=== PATIENT | female | born 1980 | race Caucasian/White ===

== ENCOUNTER 2016-09-25 16:10 | Emergency (ER) | payer OTHER ==
[~2016-09-25 16:10] MED LIST: ALBUTEROL17 G1 IH; ALBUTEROL17 GM INH; ALPRAZOLAM0.25 MG PO; AUGMENTIN PO; AUGMENTIN875 M1 PO; BACTRIM DS TABL1 TA1; BACTRIM DS TABL1 TA1 PO; BACTROBAN22 GM TOP; BAYER CHEWABLE81 MG PO; BROMFED DM COU118 ML PO; CLEOCIN HCL300 M1 PO; COLACE PO; DILAUDID2 MG PO; DOXYCYCLINE HY100 M3 PO; EXCEDRIN MIGRA1 EACH PO; FLEXERIL PO; FLEXERIL10 M1 PO; FLONASE ALLERG9.9 ML; GABAPENTIN300 MG PO; GLUCOVANCE 5/501 TA1 PO; HUMALOG100 U/ML; HUMALOG100 U/ML SUBQ; IBUPROFEN600 MG PO; JANUVIA PO; KEFLEX125 MG/5 M PO; KEFLEX500 M1 PO; KEFLEX500 MG PO; LANTUS100 U/ML SUBQ; LANTUS100 UNITS/ SUBQ; LEVAQUIN PO; LIDOCAINE 5% TOP; LISINOPRIL10 MG PO; LORTAB 10-5001 EACH PO; MACROBID 100 M100 MG PO; MACROBID100 MG PO; MEDROL DOSEPAK4 MG PO; NAPROSYN500 MG PO; NAPROXEN PO; NORVASC PO; NOVOLOG MI100 UNIT/1 SQ; NOVOLOG100 U/M1 SUBQ; NOVOLOG100 U/ML; NOVOLOG100 U/ML SUBQ; PEN-VEE K PO; PEPCID PO; PERCOCET 10/3251 TAB PO; PHENERGAN PO; PHENERGAN25 MG PO; PYRIDIUM PO; RONDEC-DM ORAL30 ML PO; VIBRAMYCIN100 M1 PO; VICODIN PO; VOLTAREN75 MG PO; ZESTRIL10 M1 PO; ZITHROMAX PO; ZITHROMAX1 G/PKT PO; ZOCOR20 MG PO; ZOFRAN ODT4 MG PO; [UNRECOGNIZED DRUG - OTHER] PO; [UNRECOGNIZED DRUG - SUPPLY]
[2016-10-07] MEDS ORDERED: NITRO-DUR 0.1M0.1 MG EXT (18:22)
[2016-10-07] MEDS ORDERED: NEURONTIN (18:22)
[2016-10-07] MEDS ORDERED: IMDUR (18:22)
[2016-10-07] MEDS ORDERED: PLETAL100 MG PO (18:22)
[2016-10-07] MEDS ORDERED: ASPIRIN81 MG PO (18:23)
[2016-10-07] MEDS ORDERED: EFFIENT10 MG PO (18:23)
[2016-10-07] MEDS ORDERED: LIPITOR80 MG PO (18:23)
[2016-10-07] MEDS ORDERED: METOPROLOL SUCC25 MG PO (18:23)
[2016-10-07] MEDS ORDERED: PROTONIX PO (18:24)
== END 2016-09-25 16:16 | disposition home or self-care (01) ==
LOC: SED 16:10
DX: L03.113 Cellulitis of right upper limb (principal); L03.312 Cellulitis of back [any part except buttock and flank]; I10 Essential (primary) hypertension; E11.9 Type 2 diabetes mellitus without complications; Z79.4 Long term (current) use of insulin; Z86.14 Personal history of Methicillin resistant Staphylococcus aureus infection; F17.210 Nicotine dependence, cigarettes, uncomplicated; Z79.899 Other long term (current) drug therapy
CPT/HCPCS: 99282

== ENCOUNTER 2016-10-07 19:25 | Emergency (ER) | payer OTHER ==
--- NOTE | ~2016-10-07 | CR63 ---
STS. [facility] A Service of [facility] RADIOLOGY TEXT RESULTS PATIENT: BREONNA ARNETT LOCATION: SED : 80 UNIT #: [id number] AGE: [address]: GIN SHAH PA-C SEX: F ORDER DR: [id number] [place] [address] [id number] E MR#: [id number] Acc #: [id number] NAME: BREONNA ARNETT : 1980 SEX: F STUDY DATE/TIME: 10/07/2016 20:34 UNIT: SED ROOM: STUDY DESCRIPTION: CR Chest 2 View Attending Physician: Gin Shah Pa-C Ordering Physician: Physician Non-Staff Primary Care Physician: Joao De León M.D. MEDICAL IMAGING REPORT This report is preliminary unless electronic signature is present. EXAM Chest HISTORY Chest pain today. Spider bite. Abscess to left buttock. [place] x2 and history of anxiety. Smoker. FINDINGS Two views of the chest are reviewed. Comparison 08/26/2016. No pleural effusion. Cardiac silhouette is normal. No acute appearing parenchymal infiltrate or acute congestive failure. No pneumothorax. IMPRESSION No active disease. Dictated by... Meagan Monteiro M.D. THIS IS AN ELECTRONICALLY VERIFIED REPORT Meagan Monteiro M.D. at 10/08/2016 8:51 PM Kalia TD: 10/08/2016 10:38 JOB #: [id number] MEDICAL IMAGING REPORT Page 1 of 1
--- NOTE | ~2016-10-07 | EKG ---
PATIENT: BREONNA ARNETT UNIT #: [id number] Ventricular Rate: 80 BPM Atrial Rate: 80 BPM P-R Interval: 152 ms QRS Duration: 92 ms Q-T Interval: 356 ms QTC Calculation(Bezet): 410 ms P Deloit: 5 degrees Calculated R Deloit: 2 degrees Calculated T Deloit: 37 degrees Diagnosis Line: Normal sinus rhythm Diagnosis Line: Minimal voltage criteria for LVH, may be normal Diagnosis Line: variant Diagnosis Line: Poor R wave progression questionable lead position Diagnosis Line: or body habitus Diagnosis Line: Abnormal ECG Diagnosis Line: When compared with ECG of 26-AUG-2016 09:15, Diagnosis Line: No significant change was found Diagnosis Line: Confirmed by TORSTEN FOWLER MD ([id number]) on 10/19/2016 Diagnosis Line: 7:56:18 PM INTERPRETING MD: JANETH WILKINSON
[~2016-10-07 19:25] MED LIST changes: +ASPIRIN81 MG PO; +EFFIENT10 MG PO; +IMDUR; +LIPITOR80 MG PO; +METOPROLOL SUCC25 MG PO; +NEURONTIN; +NITRO-DUR 0.1M0.1 MG EXT; +PLETAL100 MG PO; +PROTONIX PO
[2016-10-07 20:23] LABS: BASOPHIL# 0.1 X10e3 (0-0.3); BASOPHIL% 0.6 % (0-2.5); EOSINOPHIL# 0.5 X10e3 (0-0.7); EOSINOPHIL% 5.2 % (0.0-7.0); HEMATOCRIT 37.4 % (35.0-45.0); HEMOGLOBIN 12.1 gm/dL (12.0-16.0); LYMPHOCYTE# 2.4 X10e3 (1.0-3.5); MEAN CELL VOLUME 81.9 FL (83-96); MEAN CORPUSCULAR HEMOGLOBIN 26.5 PG (28-34); MEAN CORPUSCULAR HGB CONC 32.3 g/dL (30-36); MEAN PLATELET VOLUME 8.4 FL (6.5-11.5); MONOCYTE# 0.5 X10e3 (0-1.0); MONOCYTE% 5.3 % (3.0-12.0); NEUTROPHIL# 6.6 X10e3 (1.5-7.1); NEUTROPHIL% 64.9 % (40-75); PLATELET COUNT 359 X10e3 (140-420); RED BLOOD COUNT 4.57 X10e (3.90-5.30); WHITE BLOOD COUNT 10.1 X10e3 (4.0-10.5)
[2016-10-07 20:24] LABS: DIFF IND NO
[2016-10-07 20:32] LABS: POC - CKMB <1.0 ng/mL (0.0-7.9); POC - MYOGLOBIN 46.9 ng/mL (0.0-169.0); POC - TROPONIN <0.05 ng/mL (<=0.05)
[2016-10-07 20:39] LABS: ALBUMIN SERUM 3.1 g/dL (3.5-5.0); ALKALINE PHOSPHATASE 75 U/L (32-92); ALT (SGPT) 13 U/L (10-40); AST (SGOT) 12 U/L (10-42); BILIRUBIN,TOTAL 0.4 mg/dL (0.2-2.0); BLOOD UREA NITROGEN 15 mg/dL (9-23); BUN/CREATININE RATIO 18.75; CALCIUM SERUM 8.8 mg/dL (8.4-10.2); CARBON DIOXIDE 23 mmol/L (22-31); CHLORIDE 101 mmol/L (100-111); CREATININE SERUM 0.8 mg/dL (0.6-1.4); GLOM FILT RATE Estimated 94.9 mL/min (>60); POTASSIUM 4.3 mmol/L (3.5-5.1); PROTEIN TOTAL SERUM 7.5 g/dL (6.0-8.3)
[2016-10-07 20:42] LABS: BILIRUBIN, DIRECT <0.1 mg/dL (0.0-0.2); BILIRUBIN,INDIRECT 0.3 mg/dL (0.0-0.9); GLUCOSE FASTING 506 mg/dL (70-110); SODIUM 132 mmol/L (135-145)
[2016-10-07 20:46] LABS: URINE SOURCE CLEAN CATCH
[2016-10-07 20:48] LABS: URINE APPEARANCE CLEAR; URINE BILIRUBIN NEG (NEG); URINE BLOOD TRACE-LYSED (NEG); URINE COLOR YELLOW; URINE GLUCOSE 300 MG/DL (NORM); URINE KETONE NEG (NEG); URINE LEUKOCYTE ESTERASE NEG (NEG); URINE NITRATE NEG (NEG); URINE PH 5.5 (5-8); URINE PROTEIN NEG (NEG); URINE SPECIFIC GRAVITY <=1.005 (1.003-1.035); URINE UROBILINOGEN 0.2 MG/DL (NORM)
[2016-10-07 20:50] LABS: MICRO INDICATED? YES
[2016-10-07 20:54] LABS: CULTURE INDICATED? NO; URINE BACTERIA NEG (NEG); URINE SQUAMOUS EPITHELIAL CELL MODERATE /[HPF]; URINE YEAST PRESENT
[2016-10-07 23:46] LABS: POC - CKMB <1.0 ng/mL (0.0-7.9); POC - MYOGLOBIN 30.8 ng/mL (0.0-169.0); POC - TROPONIN <0.05 ng/mL (<=0.05)
== END 2016-10-08 01:30 | disposition home or self-care (01) ==
LOC: SED 19:25
PROVIDERS: Physician Assistant
DX: L02.31 Cutaneous abscess of buttock (principal); E11.65 Type 2 diabetes mellitus with hyperglycemia; I10 Essential (primary) hypertension; F41.9 Anxiety disorder, unspecified; Z98.51 Tubal ligation status; F17.210 Nicotine dependence, cigarettes, uncomplicated; Z91.040 Latex allergy status; Z79.4 Long term (current) use of insulin; Z79.899 Other long term (current) drug therapy
CPT/HCPCS: 36415; 71020; 80048; 80076; 81003; 82553; 82947; 83874; 84484; 85025; 87070; 87077; 87186; 87205; 93005; 96361; 96374; 99284; J2060

== ENCOUNTER 2016-11-15 13:27 | Observation (INO) | payer OTHER ==
--- NOTE | ~2016-11-15 | CT71 ---
[facility] A Service of [facility] RADIOLOGY TEXT RESULTS PATIENT: BREONNA ARNETT LOCATION: [facility] 317-01 : 80 UNIT #: [id number] AGE: [address]: Erin Coyle MD SEX: F ORDER DR: [id number] [facility] [address] [place], [place] [address] [id number] I MR#: [id number] Acc #: [id number] NAME: BREONNA ARNETT. : 1980 SEX: F STUDY DATE/TIME: 11/15/2016 17:32 UNIT: CEDOF ROOM: 74443 STUDY DESCRIPTION: CT Head Wo Contrast Attending Physician: Adri Dudley M.D. Ordering Physician: Gautam Morrison M.D. Primary Care Physician: Joao De León M.D. MEDICAL IMAGING REPORT This report is preliminary unless electronic signature is present EXAM CT of the head without contrast. DATE OF EXAM 11/15/2016 HISTORY 36-year-old female with left-sided head pain beginning today. History of migraines. COMPARISON CT head, 07/06/2016. TECHNIQUE Routine unenhanced axial images performed through the brain. This CT exam was performed with one or more of the following radiation dose reduction techniques: automatic exposure control, adjustment of mA and/or kV according to patient size, and iterative reconstruction. FINDINGS No hemorrhage, acute infarction, mass lesion, or abnormal extraaxial fluid collection. No midline shift or focal mass effect. Ventricular system normal in size and configuration. Remote left frontal periventricular white matter infarct. There is a remote lacunar infarct in the posterior left basal ganglia. No acute bony abnormality. Visualized paranasal sinuses and mastoid air cells are clear. IMPRESSION 1. No acute intracranial abnormality. 2. Remote left frontal periventricular white matter infarct and remote lacunar infarct in the posterior left basal ganglia. [facility] A Service of [facility] RADIOLOGY TEXT RESULTS PATIENT: BREONNA ARNETT LOCATION: [facility] 317-01 : [birth year] UNIT #: [id number] AGE: [address]: Erin Coyle MD SEX: F ORDER DR: Dictated by... Wisam Salazar M.D. THIS IS AN ELECTRONICALLY VERIFIED REPORT Wisam Salazar M.D. at 11/16/2016 10:57 PM BYRON/emma TD: 11/15/2016 21:57 JOB #: [id number] MEDICAL IMAGING REPORT Page 1 of 1 COPY
--- NOTE | ~2016-11-15 | HP ---
Unit #: [id number] #: [id number] Patient: BREONNA ARNETT [id number] [facility]. [place], [place] [address] [id number] I MR#: [id number] NAME: BREONNA ARNETT ROOM: 79910 Age: 36 Sex: F Admission Date: 11/15/2016 : 1980 Attending Physician: Adri Dudley M.D. Primary Care Physician: Joao De León M.D. HISTORY AND PHYSICAL CHIEF COMPLAINT Sharp headache left side. HISTORY OF PRESENT ILLNESS The patient is a 36-year-old female with past medical history of migraine headaches, diabetes, hypertension, hyperlipidemia, coronary artery disease, anxiety, tobacco abuse, morbid obesity, who presented to the emergency department for evaluation of the above. The patient states that she was in her usual state of health until the day of admission when she was at work and had a headache. She states that she was "on break" around noon and was sitting down. She turned her body and experienced the sudden onset of a sharp pain in the left mormon region of her head. She had associated nausea. She then walked back into work and was noted by coworkers to look pale. She states that she did feel somewhat lightheaded. She then was brought to the emergency department for further evaluation. While in the emergency department, she developed numbness. She had difficulty recalling if it was her left hand or her right hand. Per ER documentation it was right hand. From her discussion with me, she said she thought it was maybe left hand. That has since resolved. She now has a headache similar to migraine headaches in the past. In the emergency department, initial pulse 96 and blood pressure 132/88. CT of the head was done and showed nothing acute. She is being admitted to [facility] for evaluation and further treatment. She received 1 liter of normal saline as well as 4 mg of Zofran and 400 mg of Motrin in the emergency department. PAST MEDICAL HISTORY 1. Admission to [facility] within the past year for myocardial infarction. She underwent cardiac stent placement (there are no records). 2. Admission to [facility] 07/10 through 07/13/2016 for atypical chest pain. She underwent stress test that was negative. 3. Coronary artery disease, status post cardiac stent placement. Previously followed by Dr. Gomez. 4. Hypertension. 5. Hyperlipidemia. 6. Diabetes. 7. Anxiety. 8. Migraine headaches. Unit #: [id number] #: [id number] Patient: BREONNA ARNETT PAST SURGICAL HISTORY 1. Pilonidal cyst surgery. 2. Tubal ligation. 3. Cardiac stents. ALLERGIES Latex. HOME MEDICATIONS 1. Lisinopril 40 mg daily. 2. Ventolin one to two puffs q.4 h. p.r.n. 3. Nitroglycerin, unknown dose and frequency. 4. Pletal 100 mg daily. 5. Metoprolol 25 mg daily. 6. Lipitor 80 mg daily. 7. Aspirin 81 mg daily. 8. Protonix 40 mg daily. 9. Imdur 30 mg daily. 10. Effient 10 mg daily. 11. Lantus 55 units subcu daily. SOCIAL HISTORY The patient lives with her . She smokes intermittently. She reports occasional alcohol use. She works at [employer]. FAMILY HISTORY Notable for her father having coronary artery disease and diabetes. REVIEW OF SYSTEMS A complete review of systems is negative except as indicated in the HPI. The patient states that her blood sugars are typically in the 200 to 300 range. PHYSICAL EXAMINATION VITAL SIGNS: Temperature 98.3, pulse 96, respirations 16, blood pressure 132/88, oxygen saturation 99% on room air. GENERAL: The patient is a female who is awake and alert in no acute distress. HEENT: Head is atraumatic. Mucous membranes are moist. NECK: Supple. Trachea is midline. LUNGS: Clear to auscultation bilaterally with no increased work of breathing. HEART: Regular rate and rhythm. ABDOMEN: Soft, nontender, obese. Bowel sounds present in all four quadrants. EXTREMITIES: Nontender with no pedal edema. NEUROLOGIC: Patient is awake and alert. She follows commands. There is no facial asymmetry. No focal deficits. PSYCHIATRIC: Mood and affect are normal. Patient is cooperative. SKIN OF EXAMINED AREAS: Warm and dry. DIAGNOSTIC STUDIES LABORATORY: Complete blood count notable for white blood cell count of 11.7, hemoglobin 11.3. INR 0.9. Comprehensive metabolic panel notable for a sodium of 131 that corrects when glucose of 268 is accounted for. Albumin 3.3. Troponin less than 0.05. IMAGING: CT of the head showed nothing acute. Unit #: [id number] #: [id number] Patient: BREONNA ARNETT CARDIOVASCULAR: EKG shows normal sinus rhythm with a rate of 84 beats per minute. ASSESSMENT The patient is a 36-year-old female with: 1. Headache with history of migraines. Current headache is similar to migraine headaches in the past. 2. Hand numbness. It is unclear if it was the left hand or the right hand; however, the patient states this has been happening intermittently. The numbness has resolved. 3. Uncontrolled diabetes. 4. Hypertension. 5. Hyperlipidemia. 6. Coronary artery disease, status post stent placement. 7. Anxiety. 8. Tobacco abuse. 9. Morbid obesity with a BMI of 42. PLAN 1. Admit for observation to intermediate level. 2. Healthy-heart consistent carb diet. 3. Aspirin 325 mg p.o. times 1 if not already given. 4. Neuro checks. 5. MRI of the brain without contrast for further evaluation of headache and hand numbness. 6. Consult neurology regarding headache and possible TIA. 7. Serial cardiac enzymes. 8. Low-dose sliding scale insulin with Accu-Cheks. 9. SCDs. 10. Repeat labs in the morning. 11. Additional workup and consultants based on above. Dictated by Ad Antoine/samuel TD: 11/15/2016 20:41 JOB #: [id number] HISTORY AND PHYSICAL Page 1 of 1 X Adri Dudley MD X HISTORY AND PHYSICAL
--- NOTE | ~2016-11-15 | EKG ---
PATIENT: BREONNA ARNETT UNIT #: [id number] Ventricular Rate: 84 BPM Atrial Rate: 84 BPM P-R Interval: 142 ms QRS Duration: 88 ms Q-T Interval: 372 ms QTC Calculation(Bezet): 439 ms P Boyden: 63 degrees Calculated R Boyden: 13 degrees Calculated T Boyden: 47 degrees Diagnosis Line: Normal sinus rhythm Diagnosis Line: Normal ECG Baseline wander Diagnosis Line: When compared with ECG of 07-OCT-2016 19:25, Diagnosis Line: No significant change was found Diagnosis Line: Confirmed by TORSTEN FOWLER MD ([id number]) on 11/16/2016 Diagnosis Line: 10:05:36 AM INTERPRETING MD: JANETH WILKINSON
--- NOTE | ~2016-11-15 | CO ---
Unit #: [id number] #: [id number] Patient: BREONNA ARNETT [id number] [facility] [address] [facility]. [place], [place] [address] [id number] I MR#: [id number] NAME: BREONNA ARNETT ROOM: 317 Age: 36 Sex: F Admission Date: 11/15/2016 : 1980 Attending Physician: Erin Coyle M.D. Primary Care Physician: Joao De León M.D. Requesting Physician: Adri Dudley M.D. Consultation Date: 11/16/2016 CONSULTATION REPORT REASON FOR CONSULT Headache, questionable TIA. PATIENT IDENTIFICATION This is a 36-year-old, right-handed, female evaluated in room 317 at [facility]. SOURCE OF INFORMATION Obtained from the patient, as well as the medical record. HISTORY OF PRESENT ILLNESS This is a 36-year-old, right-handed, female, with a past medical history of migraine headaches, diabetes, hypertension, hyperlipidemia, coronary artery disease, anxiety and tobacco use, as well as morbid obesity, who presents to [facility] for evaluation of headache. The patient states that she was in her usual state of health until the day of admission when she was at work and reports that she had a sudden sharp left-sided headache when she was on break. She reports that her face went pale, and she had associated nausea, was noted by coworkers to be pale, and thus, she was brought to the ER for further evaluation. Apparently, while she was in the waiting room, she developed a little bit of numbness in her hand. Initially she had reported one hand and then reported the other hand. She reports that it lasted briefly, did not travel up her arm or down her leg or on her face. She states that she has had similar symptoms in the past with migraines. She was actually evaluated at [facility] in June of 2016 for migraine with hand numbness and had an unremarkable MRI and CT angiogram of the head and neck. She reports that her headache is a 7 on a 0-10 pain scale and continues to be bothersome to her. She states she has had no other focal changes and that the numbness resolved rather quickly and was quite transient. She states that sometimes she has focal numbness and sometimes she has bilateral hand numbness. She states that, when she had her heart attack, she ended up having whole body numbness. She states that recently, about a week ago, she became concerned about a TIA because her hand cramped up, and she had a "charley horse." However, she states that it resolved quickly. She denies any speech or swallowing difficulty, word-finding difficulty, double vision or loss vision, fever or chills, change in weight or routine or illness or injury, loss of consciousness or loss of awareness, focal facial symptoms, chest pain or shortness of air, trouble using her arms or legs or falls. She states that she has chronic migraines and that this headache is similar to her other migraines and that it is not the worse pain of her Unit #: [id number] #: [id number] Patient: BREONNA ARNETT. She states that she wakes up with headaches daily and takes ephedrine in the morning and ibuprofen in the afternoon and reports that it is a throbbing, sharp pain and that she deals with it on a daily basis. She states she has taken Topamax in the past but that she had palpitations related to it and was unable to tolerate it. She denies trying any other preventative medications in the past and states she is not on any prescription abortive therapy but takes daily Excedrin and ibuprofen. She denies exacerbating or alleviating factors otherwise. She does complain of associated photophobia, phonophobia and nausea but no vomiting. In the ER her blood pressure was 132/88. Her pulse was 96. She has been running in the 80s to 90s as far as her pulse and 130s to 150s as far as her systolic blood pressure on this admission. Her head CT was done and showed no acute findings. MRI of the brain was done here, as well, last night on 11/15/16, and it showed no acute findings, no recent ischemia or infarct and does show a 1-cm area of chronic deep white matter findings adjacent to the mid body of the left lateral ventricle and minimal chronic ischemic change in the deep white matter bilaterally. PAST MEDICAL HISTORY 1. Admission to [facility] in 2016 for myocardial infarction. She underwent cardiac stent placement. She was previously followed by Dr. Gomez, although she states she was dismissed from his practice, as she had multiple cancelled appointments that she was unable to make. 2. Admission to [facility] in July of 2016 for atypical chest pain. She underwent a stress test that was negative. 3. Coronary artery disease. 4. Hypertension. 5. Hyperlipidemia. 6. Diabetes mellitus. 7. Anxiety. 8. Migraine headaches. 9. Morbid obesity. 10. Pilonidal cyst surgery. 11. Tubal ligation. 12. Cardiac stent. ALLERGIES Latex. HOME MEDICATIONS 1. Ventolin 1-2 puffs inhalation q.4 hours as needed for shortness of breath. 2. Atorvastatin 80 mg p.o. daily. 3. Pletal 100 mg p.o. daily. 4. Metoprolol succinate 25 mg p.o. daily. 5. Lisinopril 40 mg p.o. daily. 6. Lantus insulin 60 units subcu daily. 7. Aspirin 81 mg p.o. daily. 8. Effient 10 mg p.o. daily. 9. Protonix 40 mg p.o. daily. 10. Isosorbide mononitrate 30 mg p.o. daily. 11. Nitroglycerin p.r.n. chest pain. FAMILY HISTORY Positive for coronary artery disease and diabetes. Unit #: [id number] #: [id number] Patient: BREONNA ARNETT SOCIAL HISTORY The patient lives with her . She is . She works outside the home. She is independent with her normal ADLs. She reports occasional alcohol use, as well as tobacco abuse with cigarettes. She denies illicit drug use. REVIEW OF SYSTEMS A 14-point review of systems was done. Pertinent positives are as discussed above; otherwise, negative. PHYSICAL EXAMINATION VITAL SIGNS: Temperature 98, pulse 87, respirations 20, blood pressure 135/57, oxygen saturation 98%. Blood pressure in the ER on arrival was 132/88. Height is 5'9", weight 291 pounds, BMI 43. NEUROLOGIC EXAMINATION MENTAL STATUS: The patient is awake, alert and oriented to person, place, time, as well as events. No right/left confusion. No finger agnosia. No aphasia, dysarthria or apraxia. CRANIAL NERVE EXAM: She demonstrates full leija of vision. Eyes are conjugate without ptosis or nystagmus. Extraocular movements are intact. Sensation of the face and scalp is intact. Strength of muscles of facial expression is intact. Hearing is intact to finger rub and conversation. Tongue is midline. Uvula is midline. Palate elevation is normal. Head turning and shoulder shrug were unremarkable. Neck is supple. MOTOR EXAM: She demonstrates normal bulk and tone. Strength is equal, 5/5 in all extremities. SENSORY EXAM: Intact. GAIT: Gait normal. Romberg deferred. REFLEXES: Unable to elicit. Toes are equivocal. COORDINATION: Unremarkable. DIAGNOSTIC STUDIES IMAGING: Please see above. LABS: CK 32. Hemoglobin A1C 12. B12 464. Folate 23. TSH 2.09. Sodium 132, potassium 4.5, chloride 102, CO2 23, glucose 488, BUN 18, creatinine 0.8, estimated GFR 94.9, calcium 8.5, AST 20, ALT 24, alkaline phosphatase 73, total protein 5.9, albumin 3.2. PT 9.9, INR 0.9. White blood cell count 10.6, hemoglobin 11.1, hematocrit 34.8, platelet count 250. CARDIOVASCULAR: EKG - Normal sinus rhythm. IMPRESSION 1. Acute on chronic headache, likely migraine. Patient seems to have chronic daily headaches, as well, likely at least partially (1) by medication overuse with daily Excedrin and ibuprofen. 2. History of migraine headaches. 3. Hand numbness, recurrent, sometimes bilateral and sometimes focal. No stroke identified with negative previous evaluations. CT angiogram of the head and neck from May 2016 unremarkable. 4. Morbid obesity. Recommend weight loss to help with chronic headache. 5. Coronary artery disease with history of myocardial infarction per patient. 6. Diabetes mellitus type 2, poorly controlled, with hemoglobin A1C of 12. Unit #: [id number] #: [id number] Patient: BREONNA ARNETT PLAN Nothing at this time to suggest pseudotumor cerebri. Patient denies any blurred vision or loss of vision. Symptoms more consistent with her chronic migraines. We are very limited on treatment, as the patient does have coronary artery disease. Would recommend avoiding triptans and also consideration of ecqy-ejc-ezsldnx medicine holiday, as she is having daily frequent headaches and requiring use of daily vxoz-wdo-uqolihd abortive therapy. Her exam is nonfocal, clinically does not look like status migrainosus. Her nonverbal pain scale at this time does not match her verbal pain scale. Recommend avoiding steroids, given her hyperglycemia. Did trigger with a one dose of Fioricet, and that has improved her symptoms. I discussed with Dr. Weber, and recommendations for preventative therapy and reduced use of other djuv-exh-otvajgl abortive medications. She could not tolerate Topamax in the past. Did review medications with Dr. Weber and recommend starting verapamil ER. She is on a beta-ti and other heart medications, although her heart rate stays in the 80s to 90s and blood pressure is in the 130s to 150s. I did discuss the need for this medication, potential side effects, and the patient states understanding. From our standpoint, she needs to follow up with Dr. Benson Deluca as an outpatient and also her primary care physician and get established with a lab clerk. Otherwise, she is on antiplatelet therapy, and I discussed with her modification of risk factors and lifestyle changes to reduce symptoms. Please call for any questions or issues. We thank you very much for allowing us to assist in the care of this patient. Dictated by... Neela Dotson A.P.R.N. for Ad [place]ar[place]/devin TD: 11/17/2016 09:43 JOB #: [id number] CONSULTATION REPORT Page 1 of 1 X Neela Dotson APRN X CONSULTATION REPORT
--- NOTE | ~2016-11-15 | MR18 ---
[facility] A Service [facility] RADIOLOGY TEXT RESULTS PATIENT: BREONNA ARNETT LOCATION: [facility] 317- : [birth year] UNIT #: [id number] AGE: [address]: Erin Coyle MD SEX: F ORDER DR: [id number] [facility] [address] [facility]. [place], [place] [address] [id number] I MR#: [id number] #: [id number] NAME: BREONNA ARNETT. : 1980 SEX: F STUDY DATE/TIME: 11/15/2016 21:54 UNIT: [address] ROOM: [facility] STUDY DESCRIPTION: MR Brain Wo Contrast Attending Physician: Adri Dudley M.D. Ordering Physician: Adri Dudley M.D. Primary Care Physician: Joao De León M.D. MRI CENTER REPORT This report is preliminary unless electronic signature is present. EXAM MRI brain without contrast HISTORY Migraine headache for 2 days. Left hand numbness. FINDINGS MRI brain without contrast demonstrates no recent ischemia or infarct. No focal atrophy or midline shift or ventricular dilatation or extraaxial fluid collection. Minimal chronic ischemic changes in the periventricular deep white matter bilaterally and approximately 1 cm chronic deep white matter infarct adjacent to the midbody of the left lateral ventricle. Mild mucosal thickening in the floor the maxillary sinuses bilaterally. Exam sensitivity is partly limited by motion. IMPRESSION 1. No acute findings. No recent ischemia or infarct. 2. Approximately 1 cm chronic deep white matter infarct adjacent to the midbody of the left lateral ventricle and minimal chronic ischemic changes in the deep white matter bilaterally. Dictated by... Conor Ponce M.D. THIS IS AN ELECTRONICALLY VERIFIED REPORT Conor Ponce M.D. at 11/16/2016 5:47 PM EUGENIO/natasha TD: 11/15/2016 23:14 [facility] A Service [facility] RADIOLOGY TEXT RESULTS PATIENT: BREONNA ARNETT LOCATION: [facility] 317-01 : [birth year] UNIT #: [id number] AGE: [address]: Erin Coyle MD SEX: F ORDER DR: JOB #: [id number] MRI CENTER REPORT Page 1 of 1 COPY
--- NOTE | ~2016-11-15 | BMI ---
[facility] Nutrition Therapy DATE: 11/16/16 Patient: BREONNA ARNETT Physician: LEVI Address: [address] [place] [address] Room/Bed: [address] [place] [address], Zip: [place] [address] Admit Date: 11/15/16 Date of : [birth year] Height: 5 9 Weight: 291 132 HIGH BMI NOTE: ANTHROPOMETRICS: HT: 69" WT: 132 KG BMI: 43.0 INTERVENTION: 1. HEART HEALTHY/ CONSISTENT CARBOHYDRATE DIET RECOMMENDATIONS: 1. CONTINUE CURRENT DIET IN ORDER TO PROMOTE GRADUAL WEIGHT LOSS TOWARDS HEALTHY BMI RANGE. Respectfully, KELLEY HOLLEY RD, LD Food and Nutritional Services [facility] cc: client file
[2016-11-15 16:53] LABS: BASOPHIL# 0.1 X10e3 (0-0.3); BASOPHIL% 0.6 % (0-2.5); EOSINOPHIL# 0.7 X10e3 (0-0.7); EOSINOPHIL% 6.1 % (0.0-7.0); HEMATOCRIT 36.3 % (35.0-45.0); HEMOGLOBIN 11.3 gm/dL (12.0-16.0); LYMPHOCYTE# 2.8 X10e3 (1.0-3.5); LYMPHOCYTE% 23.9 % (17.0-45.0); MEAN CELL VOLUME 81.1 FL (83-96); MEAN CORPUSCULAR HEMOGLOBIN 25.3 PG (28-34); MEAN CORPUSCULAR HGB CONC 31.2 g/dL (30-36); MEAN PLATELET VOLUME 8.9 FL (6.5-11.5); MONOCYTE# 0.7 X10e3 (0-1.0); MONOCYTE% 5.6 % (3.0-12.0); NEUTROPHIL# 7.4 X10e3 (1.5-7.1); NEUTROPHIL% 63.8 % (40-75); PLATELET COUNT 273 X10e3 (140-420); RED BLOOD COUNT 4.48 X10e (3.90-5.30); RED CELL DISTRIBUTION WIDTH 13.9 % (11.0-15.5); WHITE BLOOD COUNT 11.7 X10e3 (4.0-10.5)
[2016-11-15 16:58] LABS: DIFF IND NO
[2016-11-15 17:07] LABS: INR 0.9; PROTHROMBIN TIME (PATIENT) 9.8 SECONDS (9.6-11.5)
[2016-11-15 17:11] LABS: ALBUMIN SERUM 3.3 g/dL (3.5-5.0); BILIRUBIN, DIRECT 0.1 mg/dL (0.0-0.2); BILIRUBIN,INDIRECT 0.1 mg/dL (0.0-0.9); BILIRUBIN,TOTAL 0.2 mg/dL (0.2-2.0); BUN/CREATININE RATIO 31.66; CREATININE SERUM 0.6 mg/dL (0.6-1.4); GLOM FILT RATE Estimated 117.3 mL/min (>60); PROTEIN TOTAL SERUM 6.9 g/dL (6.0-8.3)
[2016-11-15] MEDS ORDERED: IMDUR-ER30 M3 PO (18:31)
[2016-11-15] MEDS ORDERED: EFFIENT10 MG PO (18:32)
[2016-11-15] MEDS ORDERED: LANTUS100 U/ML SUBQ (18:35)
[2016-11-15 18:53] LABS: POC - CKMB <1.0 ng/mL (0.0-7.9); POC - TROPONIN <0.05 ng/mL (<=0.05)
[2016-11-16 04:25] LABS: BASOPHIL# 0.1 X10e3 (0-0.3); BASOPHIL% 0.5 % (0-2.5); DIFF IND NO; EOSINOPHIL# 0.7 X10e3 (0-0.7); EOSINOPHIL% 6.7 % (0.0-7.0); HEMATOCRIT 34.8 % (35.0-45.0); HEMOGLOBIN 11.1 gm/dL (12.0-16.0); LYMPHOCYTE# 2.4 X10e3 (1.0-3.5); LYMPHOCYTE% 22.8 % (17.0-45.0); MEAN CELL VOLUME 82.1 FL (83-96); MEAN CORPUSCULAR HEMOGLOBIN 26.1 PG (28-34); MEAN CORPUSCULAR HGB CONC 31.8 g/dL (30-36); MEAN PLATELET VOLUME 9.1 FL (6.5-11.5); MONOCYTE# 0.6 X10e3 (0-1.0); NEUTROPHIL# 6.8 X10e3 (1.5-7.1); PLATELET COUNT 250 X10e3 (140-420); RED BLOOD COUNT 4.23 X10e (3.90-5.30); WHITE BLOOD COUNT 10.6 X10e3 (4.0-10.5)
[2016-11-16 04:41] LABS: INR 0.9; PROTHROMBIN TIME (PATIENT) 9.9 SECONDS (9.6-11.5)
[2016-11-16 04:47] LABS: CK TOTAL 40 IU/L (26-140)
[2016-11-16 05:08] LABS: ALBUMIN SERUM 3.2 g/dL (3.5-5.0); BILIRUBIN,TOTAL 0.3 mg/dL (0.2-2.0); BUN/CREATININE RATIO 22.5; CALCIUM SERUM 8.5 mg/dL (8.4-10.2); CREATININE SERUM 0.8 mg/dL (0.6-1.4); GLOM FILT RATE Estimated 94.9 mL/min (>60); POTASSIUM 4.5 mmol/L (3.5-5.1); PROTEIN TOTAL SERUM 5.9 g/dL (6.0-8.3)
[2016-11-16 11:24] LABS: CK TOTAL 32 IU/L (26-140)
[2016-11-16] MEDS ORDERED: FIORICET 50-301 EACH PO (13:49)
== END 2016-11-16 18:04 | disposition home or self-care (01) ==
LOC: CED 13:27 → C3A PCU 19:40 → CEDOF 19:40 → CED 20:14 → C3A PCU 20:14 → CEDOF 22:45 → C3A PCU 11-16 07:39
PROVIDERS: Emergency Medicine; Family Medicine
DX: R51 Headache (principal); R20.0 Anesthesia of skin; E11.65 Type 2 diabetes mellitus with hyperglycemia; Z79.4 Long term (current) use of insulin; E66.01 Morbid (severe) obesity due to excess calories; Z68.41 Body mass index [BMI] 40.0-44.9, adult; E78.5 Hyperlipidemia, unspecified; I25.10 Atherosclerotic heart disease of native coronary artery without angina pectoris; Z95.5 Presence of coronary angioplasty implant and graft; I25.2 Old myocardial infarction; F41.9 Anxiety disorder, unspecified; Z91.040 Latex allergy status; Z83.3 Family history of diabetes mellitus; Z82.49 Family history of ischemic heart disease and other diseases of the circulatory system
CPT/HCPCS: 70450; 70551; 80048; 80053; 80076; 82550; 82553; 82607; 82746; 82947; 83036; 84443; 84484; 85025; 85610; 93005; 94760; 96361; 96374; 96375; 99285; G0378; J1815; J2060; J2405